=== PATIENT | female | born 1995 | race African-American/Black ===

== ENCOUNTER 2022-04-26 09:30 | Inpatient (IN) | payer OTHER ==
[2022-04-26] MEDS ORDERED: ELECTROLYTE-148 SOLN 1,000 ML IV SCH ×2 (10:00→21:45)
[2022-04-26 10:34] VITALS: BMI 32.6
[2022-04-26 11:03] LABS: BASO % 0.7 % (0-2.0); HEMATOCRIT 36.1 % (32.4-45.2); HEMOGLOBIN 11.3 GM/dL (10.7-15.3); MCH 20.9 pg (25.7-33.7); MCHC 31.3 g/dl (32.0-36.0); MEAN PLT VOLUME 7.8 fl (7.5-11.1); MONO % 10.6 % (3.8-10.2); NEUT % 70.7 % (42.8-82.8); PLATELET COUNT 305 10^3/uL (134-434); RBC 5.39 M/mm3 (3.60-5.2); RDW 15.3 % (11.6-15.6); WHITE BLOOD COUNT 9.2 K/mm3 (4.0-10.0)
[2022-04-26 11:13] LABS: INR 0.96 (0.83-1.09)
[2022-04-26 11:16] LABS: ACTIVATED PTT 27.7 SECONDS (25.2-36.5)
[2022-04-26 11:58] LABS: BLOOD UREA NITROGEN 5.9 mg/dL (7-18); CALCIUM 8.9 mg/dL (8.5-10.1)
[2022-04-26 12:01] LABS: CREATININE 0.7 mg/dL (0.55-1.3)
[2022-04-26 12:31] LABS: ANISOCYTOSIS 3+; MACROCYTOSIS 0; TARGET CELLS 1+
[2022-04-26 12:55] LABS: HIV INTERPRETATION NEGATIVE (NEGATIVE)
[2022-04-26] MEDS ORDERED: OXYTOCIN 30 UNITS in 0.9% NS 30 UNIT/500 ML INFUS.BAG IVPB SCH (13:15)
[2022-04-26] MEDS ORDERED: OXYTOCIN 30 UNITS in 0.9% NS 30 UNIT/500 ML INFUS.BAG IVPB ONE (13:19)
[2022-04-26 15:15] LABS: HEPATITIS B SURFACE AG MATERN NON-REACTIVE (NONREACTIVE)
[2022-04-26] MEDS ORDERED: BUTORPHANOL TARTRATE 2 MG/ML VIAL IVPB ONE (15:33)
[2022-04-26] MEDS ORDERED: PROMETHAZINE HCL 25 MG/1 ML VIAL IVPUSH ONE (15:33)
[2022-04-26] MEDS ORDERED: DEXTROSE 5%-LACTATED RINGERS 1,000 ML IV SCH (15:45)
[2022-04-26] MEDS ORDERED: FENTANYL/BUPIVACAINE/NS/PF - PCEA - 50 ML DISP.SYRIN EP ONE (15:45)
[2022-04-26] MEDS ORDERED: BUPIVACAINE HCL/PF 0.25% (2.5MG/ML) 10 ML VIAL ONE (15:51)
[2022-04-26] MEDS ORDERED: FENTANYL CITRATE/PF 50 MCG/ML VIAL ONE ×2 (15:51→21:44)
[2022-04-26] MEDS: FENTANYL/BUPIVACAINE/NS/PF - PCEA - 50 ML DISP.SYRIN EP SCH (16:10)
[2022-04-26] MEDS ORDERED: NALOXONE HCL 0.4 MG/ML VIAL IVPUSH PRN (17:05)
[2022-04-26] MEDS ORDERED: CITRIC ACID/SODIUM CITRATE 30 ML UNIT-DOSE CUP PO ONE (21:34)
[2022-04-26] MEDS ORDERED: DEXAMETHASONE SOD PHOSPHATE 4 MG/1 ML VIAL ONE (21:59)
[2022-04-26] MEDS ORDERED: KETOROLAC TROMETHAMINE 30 MG/1 ML VIAL ONE (21:59)
[2022-04-26] MEDS ORDERED: morphine SULFATE (PF) 1 MG/2 ML SYRINGE ONE (21:59)
[2022-04-26] MEDS ORDERED: ONDANSETRON 4 MG/2 ML VIAL ONE ×2 (21:59→22:11)
[2022-04-26] MEDS ORDERED: OXYTOCIN 10 UNITS/ML VIAL ONE (22:11)
[2022-04-26] MEDS ORDERED: IBUPROFEN 800 MG/8 ML IJ IVPB PRN (23:08)
[2022-04-26] MEDS ORDERED: METHYLERGONOVINE MALEATE 0.2 MG/1 ML AMP IM PRN (23:08)
[2022-04-26] MEDS ORDERED: ACETAMINOPHEN 325 MG TABLET (FP) PO PRN (23:08)
[2022-04-26] MEDS ORDERED: SENNOSIDES/DOCUSATE COMBO (SENNA PLUS) TABLET (UD) PO PRN (23:08)
[2022-04-27] MEDS: OXYTOCIN 20 UNITS in 0.9% NS 20 UNIT/1,000 ML INFUS.BAG IV SCH ×2 (00:15→10:20)
[2022-04-27 08:53] LABS: HEMATOCRIT 32.4 % (32.4-45.2); HEMOGLOBIN 10.2 GM/dL (10.7-15.3); MCH 21.4 pg (25.7-33.7); MCHC 31.4 g/dl (32.0-36.0); MEAN CELL VOLUME 68.2 fl (80-96); MEAN PLT VOLUME 7.7 fl (7.5-11.1); PLATELET COUNT 287 10^3/uL (134-434); RBC 4.75 M/mm3 (3.60-5.2); RDW 16.1 % (11.6-15.6); WHITE BLOOD COUNT 21.1 K/mm3 (4.0-10.0)
[2022-04-27] MEDS: PRENATAL VITAMINS W/ FOLIC ACID TABLET (FP) PO SCH (09:14)
[2022-04-27 09:25] LABS: ANISOCYTOSIS 2+; MACROCYTOSIS 0; TEAR DROP CELLS 1+
[2022-04-27] MEDS ORDERED: oxyCODONE HCL 5 MG TABLET PO PRN ×2 (11:08)
[2022-04-27] MEDS: FENTANYL/BUPIVACAINE/NS/PF - PCEA - 50 ML DISP.SYRIN EP SCH (19:12)
[2022-04-27] MEDS: SIMETHICONE 80 MG TAB.CHEW (FP) PO PRN (20:20)
[2022-04-27] MEDS: IBUPROFEN 600 MG TABLET (FP) PO PRN (20:20)
[2022-04-27] MEDS ORDERED: BISACODYL 10 MG SUPP.RECT RC PRN (23:08)
[2022-04-28] MEDS: SIMETHICONE 80 MG TAB.CHEW (FP) PO PRN ×3 (04:46→19:44)
[2022-04-28] MEDS: IBUPROFEN 600 MG TABLET (FP) PO PRN ×3 (04:46→19:44)
[2022-04-28] MEDS: PRENATAL VITAMINS W/ FOLIC ACID TABLET (FP) PO SCH (09:30)
[2022-04-29] MEDS: SIMETHICONE 80 MG TAB.CHEW (FP) PO PRN (07:27)
[2022-04-29] MEDS: IBUPROFEN 600 MG TABLET (FP) PO PRN (07:27)
[2022-04-29] MEDS: PRENATAL VITAMINS W/ FOLIC ACID TABLET (FP) PO SCH (10:29)
[2022-04-29 11:08] VITALS: BP 111/87; PULSE 97; RESP 20; TEMP 98.1
== END 2022-04-29 11:25 | disposition home or self-care (01) | DRG 788 ==
LOC: JLDR 09:30 → J3W 04-27 00:57
PROVIDERS: ADMIT Obstetrics & Gynecology; ATTEND Obstetrics & Gynecology
PROC: 10D00Z1 Extraction of Products of Conception, Low, Open Approach (ICD-10-PCS; principal; 2022-04-26)
DX: O42.02 Full-term premature rupture of membranes, onset of labor within 24 hours of rupture (principal); O32.4XX0 Maternal care for high head at term, not applicable or unspecified; O76 Abnormality in fetal heart rate and rhythm complicating labor and delivery; O69.89X0 Labor and delivery complicated by other cord complications, not applicable or unspecified; Z3A.39 39 weeks gestation of pregnancy; Z37.0 Single live birth
CPT/HCPCS: 36415; 80048; 85025; 85610; 85730; 86780; 86850; 86900; 86901; 87340; 87389; 88307-TC; C9803-CS; U0003; U0005